=== PATIENT | male | born 1960 | race American Indian/Alaskan Native ===

== ENCOUNTER 2017-09-21 09:42 | Emergency (ER) | payer SELFPAY ==
--- NOTE | 2017-09-21 10:02 | EDM.PDOC ---
ED HPI GENERAL MEDICAL PROBLEM - General Chief Complaint: Respiratory Problem Stated Complaint: BAD COUGH Time Seen by Provider: 09/21/17 10:01 Source of Information: Reports: Patient History Limitations: Reports: No Limitations - History of Present Illness INITIAL COMMENTS - FREE TEXT/NARRATIVE: HISTORY AND PHYSICAL: []57-year-old gentleman presenting with the coughing 4 days History of Present Illness: []Patient does report having chills at times no headache denies nausea or vomiting Review of Systems: As per history of present illness and below otherwise all systems reviewed and negative. Past medical history: As per history of present illness and as reviewed below otherwise noncontributory. Surgical history: As per history of present illness and as reviewed below otherwise noncontributory. Social history: No reported history of drug or alcohol abuse. Family history: As per history of present illness and as reviewed below otherwise noncontributory. Physical exam: Alert gentleman answering questions appropriately in full sentences no shortness of breath noted. Skin is warm and dry HEENT: Atraumatic, normocehpalic, pupils reactive, negative for conjunctival pallor or scleral icterus, mucous membranes moist, throat clear, neck supple, nontender, trachea midline. Tympanic membranes slightly dull but landmarks are visualized. No cervical adenopathy Lungs: Clear to auscultation, breath sounds equal bilaterally, chest non tender. Good inspiratory extra effort Heart: S1S2, regular, negative for clicks, rubs, or JVD. Abdomen: Soft, nondistended, nontender. Negative for masses or hepatossplenmegaly. Negative for costovertebral tenderness. Pelvis: Stable nontender. Genitourinary: Deferred. Rectal: Deferred Extremities: Atraumatic, negative for cords or calf pain. Neurovascular unremarkable. Neuro: Awake, alert, oriented. Cranial nerves II through XII unremarkable. Cerebellum unremarkable. Motor and sensory unremarkable throughout. Exam nonfocal. Discussed with the patient that he has a pneumonia/his chronic fibrosis Diagnostics: [Influenza, chest x-ray] Therapeutics: [] Impression: [Right upper lobe pneumonia] Plan: [Discharged to home Was on antibiotics Inhaler of albuterol Follow-up with his primary care Any worsening of symptoms over the weekend he'll need to return for further evaluation and equal emergency department] Definitive disposition and diagnosis as appropriate pending reevaluation and review of above. Onset: Gradual Duration: Chronic, Getting Worse - Related Data Allergies Allergy/AdvReac Type Severity Reaction Status Date / Time codeine Allergy Nausea and Verified 09/21/17 10:03 Vomiting Home Meds: Home Meds Albuterol [Ventolin HFA] 2 puff INH Q4H PRN #1 inh 09/21/17 [Rx] Amoxicillin/Potassium Clav [Augmentin 875-125 Tablet] 1 each PO BID #20 tablet 09/21/17 [Rx] sitaGLIPtin Phos/Metformin HCl [Janumet 50-1,000 MG] 1 tab PO DAILY 09/21/17 [ History] ED ROS GENERAL - Review of Systems Review Of Systems: ROS reveals no pertinent complaints other than HPI. ED EXAM, GENERAL - Physical Exam Exam: See Below (see dictation) Course - Vital Signs Last Recorded V/S: Last Vital Signs Temp 36.5 C 09/21/17 09:59 Pulse 84 09/21/17 09:59 Resp 18 09/21/17 09:59 BP 175/90 H 09/21/17 09:59 Pulse Ox 97 09/21/17 09:59 - Orders/Labs/Meds Orders: Active Orders 24 hr Category Date Time Status Chest 2V [CR] Stat Exams 09/21/17 10:04 Taken Departure - Departure Time of Disposition: 10:51 Disposition: Home, Self-Care 01 Condition: Good Clinical Impression: Pneumonia Qualifiers: Pneumonia type: due to unspecified organism Laterality: right Lung location: upper lobe of lung Qualified Code(s): J18.1 - Lobar pneumonia, unspecified organism - Discharge Information Prescriptions: Albuterol [Ventolin HFA] 2 puff INH Q4H PRN #1 inh PRN Reason: Shortness Of Breath Amoxicillin/Potassium Clav [Augmentin 875-125 Tablet] 1 each PO BID #20 tablet Referrals: PCP,None [Primary Care Provider] - Forms: ED Department Discharge Additional Instructions: The following information is given to patients seen in the emergency department who are being discharged to home. This information is to outline your options for follow-up care. We provide all patients seen in our emergency department with a follow-up referral. The need for follow-up, as well as the timing and circumstances, are variable depending upon the specifics of your emergency department visit. If you don't have a primary care physician on staff, we will provide you with a referral. We always advise you to contact your personal physician following an emergency department visit to inform them of the circumstance of the visit and for follow-up with them and/or the need for any referrals to a consulting specialist. The emergency department will also refer you to a specialist when appropriate. This referral assures that you have the opportunity for followup care with a specialist. All of these measure are taken in an effort to provide you with optimal care, which includes your followup. Under all circumstances we always encourage you to contact your private physician who remains a resource for coordinating your care. When calling for followup care, please make the office aware that this follow-up is from your recent emergency room visit. If for any reason you are refused follow-up, please contact the [facility] emergency department at and asked to speak to the emergency department charge nurse. Diagnosis of pneumonia on the right side Antibiotic of Augmentin 1 tablet twice daily or 10 days Inhalation therapy with Ventolin 2 puffs up to 4 times daily as needed for shortness of breath or cough - My Orders Last 24 Hours: My Active Orders 09/21/17 10:04 Chest 2V [CR] Stat - Assessment/Plan Last 24 Hours: My Active Orders 09/21/17 10:04 Chest 2V [CR] Stat
--- NOTE | 2017-09-23 09:25 | CR ---
EXAM DATE: 09/21/17 PATIENT'S AGE: 57 Patient: JES SANCHEZ Facility: [place], [place] Site . Site : [id number] Study: XRay Chest [id number]/24/2018 10:19:29 AM Ordering Physician: Doctor Epps Final Report: INDICATION: Cough. TECHNIQUE: Two-view chest. COMPARISON: None available. FINDINGS: Heart is normal in size. Upward retraction of the left hilum with apical fibrosis and apical pleural thickening likely chronic findings. The pulmonary vessels are normal. Right upper lobe infiltrate. Lungs otherwise clear. No pleural fluid. IMPRESSION: 1. Right upper lobe infiltrate. 2. Suspected chronic changes in the left chest. Dictated by David Ron MD @ Sep 21 2017 10:48AM (Electronic Signature) Report Signed by Proxy. [facility]US[facility]ney
== END 2017-09-21 11:10 | disposition home or self-care (01) ==
LOC: MW.ED 09:42
DX: J18.9 Pneumonia, unspecified organism (principal); Z79.84 Long term (current) use of oral hypoglycemic drugs; Z88.5 Allergy status to narcotic agent
CPT/HCPCS: 71046; 71046-26; 87804; 99283